=== PATIENT | male | born 1945 | race Caucasian/White ===

== ENCOUNTER 2020-05-13 19:09 | Emergency (ER) | payer MEDICARE, OTHER, SELFPAY ==
[2020-05-13 19:13] VITALS: BP 107/63; PULSE 84; RESP 18; TEMP 36.1; O2SAT 100
--- NOTE | 2020-05-13 19:32 | ED.GENADULT ---
HPI - General Adult General Chief complaint: Extremity Injury, Upper <Regina Hernandez PA-C - Last Filed: 05/13/20 21:31> Stated complaint: BLOOD CLOT IN ARM <Regina Hernandez PA-C - Last Filed: 05/13/20 21:31> Time Seen by Provider: 05/13/20 19:31 <Regina Hernandez PA-C - Last Filed: 05/13/20 21:31> Source: patient and family <Regina Hernandez PA-C - Last Filed: 05/13/20 21:31> Mode of arrival: ambulatory <VINCE Stock Last Filed: 05/13/20 21:31> Limitations: no limitations <Regina Hernandez PA-C - Last Filed: 05/13/20 21:31> History of Present Illness HPI narrative: This 75-year-old gentleman is here for evaluation of possible blood clot in his left upper arm. 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 He denies any trauma to his left arm states that he was just sitting in his chair watching TV on Wednesday when he suddenly had pain in his left arm and then not developed. He now has a knot and bruising at that site but there is no swelling of his left arm. And his arm is warm to touch. <Regina Hernandez PA-C - Last Filed: 05/13/20 21:31> Onset (ago): day(s) (24 hrs ago) <Regina Hernandez PA-C - Last Filed: 05/13/20 21:31> Severity scale (1-10): 1 <VINCE Stock Last Filed: 05/13/20 21:31> Pain Consistency: constant <VINCE Stock Last Filed: 05/13/20 21:31> Exacerbating factors: none <VINCE Stock Last Filed: 05/13/20 21:31> Associated symptoms: denies other symptoms <Regina Hernandez PA-C - Last Filed: 05/13/20 21:31> Treatments prior to arrival: none <Regina Hernandez PA-C - Last Filed: 05/13/20 21:31> Related Data Allergies/adverse reactions: Allergies Allergy/AdvReac Type Severity Reaction Status Date / Time colesevelam Allergy Dizziness Verified 05/13/20 19:10 simvastatin Allergy Dizziness Verified 05/13/20 19:10 cefdinir AdvReac Itching Verified 05/13/20 19:10 <Regina Hernandez PA-C - Last Filed: 05/13/20 21:31> Review of Systems Review of Systems: All systems reviewed & are unremarkable except as noted in HPI and below <Regina Hernandez PA-C - Last Filed: 05/13/20 21:31> [facility] Social History Social History: Social History (Updated 05/13/20 @ 21:07 by Regina Hernandez PA-C) Smoking status: Never smoker Alcohol intake: never Substance use: never Living arrangements: with family Occupation/Education: retired <Regina Hernandez PA-C - Last Filed: 05/13/20 21:31> Exam Const: General: no acute distress and alert <Regina Hernandez PA-C - Last Filed: 05/13/20 21:31> Orientation/consciousness: patient oriented x3 <Regina Hernandez PA-C - Last Filed: 05/13/20 21:31> HENMT: Head: normal to inspection <Regina Hernandez PA-C - Last Filed: 05/13/20 21:31> Eyes: Pupils: Equal, round and reactive pupils present <Regina Hernandez PA-C - Last Filed: 05/13/20 21:31> Neck: Other: No bruit <Regina Hernandez PA-C - Last Filed: 05/13/20 21:31> Resp: Effort & Inspection: normal respiratory effort <Regina Hernandez PA-C - Last Filed: 05/13/20 21:31> Auscultation: clear to auscultation bilaterally <Regina Hernandez PA-C - Last Filed: 05/13/20 21:31> Cardio: Rate: regular rate <Regina Hernandez PA-C - Last Filed: 05/13/20 21:31> Rhythm: regular rhythm <Regina Hernandez PA-C - Last Filed: 05/13/20 21:31> GI: GI Palp: Yes Soft to palpation <Regina Hernandez PA-C - Last Filed: 05/13/20 21:31> Skin: General skin exam: normal color <Regina Hernandez PA-C - Last Filed: 05/13/20 21:31> Other: With exception of bruise on right lower leg and bruise in left upper arm. Palpable hematoma in both <Regina Hernandez PA-C - Last Filed: 05/13/20 21:31> Neuro: General: moves all extremities <Regina Hernandez PA-C - Last Filed: 05/13/20 21:31> Extrem: General: normal to inspection and other (No swelling of left arm)
[2020-05-13 21:14] LABS: INR 3.1; Prothrombin Time 32.7 Seconds (11.1-14.7)
[2020-05-13 22:04] VITALS: BP 119/73; PULSE 71; RESP 18; O2SAT 98
== END 2020-05-13 22:06 | disposition home or self-care (01) ==
PROVIDERS: Physician Assistant; Emergency Provider Emergency Medicine; PCP Physician Assistant
DX: M79.602 Pain in left arm (principal); M79.81 Nontraumatic hematoma of soft tissue; Z79.01 Long term (current) use of anticoagulants; Z86.711 Personal history of pulmonary embolism
CPT/HCPCS: 36415; 85610; 99283

== ENCOUNTER 2020-05-14 07:32 | Outpatient (CLI) | payer MEDICARE, OTHER, SELFPAY ==
--- NOTE | ~2020-05-14 | US_ITS ---
EXAMINATION: US venous doppler UE LT DATE: 05/14/2020 08:12 INDICATION: Contusion left upper arm with pain TECHNIQUE: Malhotra scale images with and without compression and Doppler images of the left upper extrem ity veins were obtained. COMPARISON: None. FINDINGS: The left internal jugular vein, subclavian vein, axillary vein, brachial veins, basilic vein, cephali c vein, radial vein, and ulnar vein are patent.] IMPRESSION: 1. Patent left upper extremity veins. No evidence of deep venous thrombosis. Reviewed, dictated and finalized at location [facility]
== END 2020-05-14 07:33 | disposition home or self-care (01) ==
PROVIDERS: PCP Physician Assistant; Visit Provider Physician Assistant
DX: M79.622 Pain in left upper arm (principal); S40.022A Contusion of left upper arm, initial encounter; X58.XXXA Exposure to other specified factors, initial encounter
CPT/HCPCS: 93971

== ENCOUNTER 2024-03-22 23:05 | Emergency (ER) | payer MEDICARE, OTHER, SELFPAY ==
--- NOTE | ~2024-03-22 | XR_ITS ---
HISTORY: fall, pain COMPARISON: None TECHNIQUE: 3 views of the left wrist were performed FINDINGS: Significant soft tissue swelling overlying the left wrist. Findings on lateral view suggest carpal dislocation difficult to discern on oblique views. For which clinical correlation is needed. IMPRESSION: No acute fracture deformity is appreciated. Possible carpal dislocation, however difficult to discern on oblique views. Reviewed, dictated and finalized at location A.
--- NOTE | ~2024-03-22 | CT_ITS ---
CT head without contrast Indication: Trauma Technique: Serial scans were obtained through the brain without the administration of contrast. Dose reduction technique was used on this scan by utilizing automated exposure control and iterative recon struction technique. The dose-length product (DLP) was 605.33 mGy-cm. Findings: There is no evidence of intracranial hemorrhage, mass lesion, or acute infarct. The ventri cles and subarachnoid spaces are dilated, consistent with mild atrophy. Low attenuation regions are seen within the periventricular white matter bilaterally, likely representing changes from chronic mi crovascular ischemic disease. There is no evidence of edema, mass effect or midline shift. The visu alized paranasal sinuses and mastoid air cells are clear. Impression: No intracranial hemorrhage, mass, or acute infarct. Atrophy and chronic white matter changes, as above. Reviewed, dictated and finalized at location . Impression: No intracranial hemorrhage, mass, or acute infarct. Atrophy and chronic white matter changes, as above.
--- NOTE | ~2024-03-22 | XR_ITS ---
CHEST RADIOGRAPH, PA AND LATERAL CLINICAL HISTORY: NEAR SYNCOPE FALL DIZZY . COMPARISON: None available TECHNIQUE: PA and lateral views of the chest. FINDINGS Sternal wires and mediastinal clips are identified, the wires are midline and intact. The right upper lung is partially obscured due to pacemaker generator. Wires project over the right atrium and right ventricle. The remainder of the cardiomediastinal silhouette is otherwise unremarkable. Blunting of the left costophrenic sulcus suggesting a small left-sided pleural effusion. The remainde r of the lungs are clear. Visualized osseous structures and soft tissues are unremarkable. IMPRESSION: Small left-sided pleural effusion without focal infiltrate. Reviewed, dictated and finalized at location A.
[2024-03-22 23:08] VITALS: BP 163/81; PULSE 78; RESP 22; TEMP 36.6; O2SAT 98
--- NOTE | 2024-03-22 23:15 | ECG_ITS ---
Test Date: 2024-03-22 23:24:18 Measurements Intervals [place] Rate: 72 P: 269 CO: 154 QRS: -5 QRSD: 132 T: 51 QT: 419 QTc: 461 Interpretive Statements SINUS RHYTHM RIGHT BUNDLE BRANCH BLOCK [120+ ms QRS DURATION, UPRIGHT V1, 40+ ms S IN I/aVL/V4/V5/V6] INFERIOR MYOCARDIAL INFARCTION , PROBABLY OLD [40+ ms Q WAVE AND/OR ST/T ABNORMALITY IN II/aVF] ABNORMAL ECG No previous ECG available for comparison Electronically Signed On 03-23-2024 07:57:05 CDT by José Miguel Quesada M.D.
[2024-03-23 00:10] LABS: Basophils Percent Auto 0.7 % (0.2-1.2); Eosinophils Absolute Auto 0.4 K/mm3 (0-0.3); Eosinophils Percent Auto 6.4 % (0-4.4); Hematocrit 37.1 % (42.0-52.0); Hemoglobin 11.6 g/dL (14.0-18.0); Immature Granulocyte Absolute 0.03 K/mm3 (0.00-0.031); Immature Granulocyte Percent A 0.5 % (0-0.5); Lymphocytes Absolute Auto 1.51 K/mm3 (0.9-3.2); Lymphocytes Percent Auto 25.5 % (18.3-44.2); Mean Corpuscular HGB Conc 31.3 g/dl (32-36); Mean Corpuscular Hemoglobin 29.7 pg (26-34); Mean Corpuscular Volume 95.1 fl (80-100); Mean Platelet Volume 9.3 fl (7.4-10.4); Monocytes Absolute Auto 0.6 K/mm3 (0.1-0.6); Monocytes Percent Auto 9.5 % (2.6-8.5); Neutrophils Absolute Auto 3.4 K/mm3 (1.3-6.7); Neutrophils Percent Auto 57.4 % (45.5-73.1); Platelet Count Result 189 k/mm3 (150-375); Red Cell Distribution Width 15.4 % (11.5-14.5); White Blood Count 5.9 K/mm3 (4.5-10.0)
[2024-03-23 00:18] LABS: Anion Gap 9 mmol/L (4-12); Blood Urea Nitrogen 12 mg/dL (9-20); Carbon Dioxide 23 mmol/L (22-30); Chloride 108 mmol/L (98-107); Potassium 3.9 mmol/L (3.4-5.0); Sodium 140 mmol/L (137-145)
[2024-03-23 00:19] LABS: Alanine Aminotransferase 19 U/L (6-50); Albumin Level 4.2 g/dL (3.5-5.1); Alkaline Phosphatase 57 U/L (38-126); Aspartate Amino Transferase 27 U/L (17-59); Bilirubin,Total 0.4 mg/dL (0.2-1.3); Calcium 9.3 mg/dL (8.4-10.2); Estimated CRCL calculation 41 ml/min; Estimated Glomerular Filt Rate 45; Glucose 172 mg/dL (65-110)
--- NOTE | 2024-03-23 01:18 | ED.FALL ---
HPI - Fall General Chief Complaint: Fall Stated Complaint: fall Time Seen by Provider: 03/23/24 01:16 History of Present Illness HPI Narrative: 78-year-old male present to the emergency department for evaluation for multiple injuries after a fall. Patient states he had a mechanical fall resulting in multiple skin tears and pain in his hand. Related Data Home Medications Medication Instructions Recorded Confirmed acetaminophen 325 mg capsule 325 mg PO Q6H PRN 03/04/21 03/05/21 acetylcysteine 200 mg/mL (20 %) 1 ml inhalation ONCE 03/04/21 03/05/21 solution albuterol sulfate 0.63 mg/3 mL 0.63 mg inhalation Q4-6H PRN 03/04/21 03/05/21 solution for nebulization albuterol sulfate 90 mcg/actuation 1 puff inhalation Q4H PRN 03/04/21 03/05/21 aerosol inhaler (Proventil HFA) apixaban 5 mg tablet (Eliquis) 5 mg PO BID 03/04/21 03/05/21 aspirin 81 mg tablet,delayed 81 mg PO DAILY 03/04/21 03/05/21 release (Adult Low Dose Aspirin) atorvastatin 80 mg tablet (Lipitor) 80 mg PO DAILY 03/04/21 03/05/21 cholecalciferol (vitamin D3) 125 125 mcg PO DAILY 03/04/21 03/05/21 mcg (5,000 unit) capsule citalopram 20 mg tablet 20 mg PO DAILY 03/04/21 03/05/21 docusate sodium 100 mg capsule 100 mg PO DAILY 03/04/21 03/05/21 (Colace) ezetimibe 10 mg tablet (Zetia) 10 mg PO DAILY 03/04/21 03/05/21 fexofenadine 180 mg tablet 180 mg PO DAILY 03/04/21 03/05/21 (Allergy Relief (fexofenadine)) fluticasone 250 mcg-salmeterol 50 1 inh inhalation BID 03/04/21 03/05/21 mcg/dose blistr powdr for inhalation (Advair Diskus) fluticasone propionate 50 1 spray intranasal DAILY 03/04/21 03/05/21 mcg/actuation nasal spray,suspension (Allergy Relief (fluticasone)) guaifenesin 600 mg tablet, 600 mg PO Q12H PRN 03/04/21 03/05/21 extended release 12 hr (Mucinex) hydroxyzine HCl 50 mg tablet 50 mg PO QID PRN 03/04/21 03/05/21 ipratropium 0.5 mg-albuterol 3 mg 3 ml inhalation Q6H PRN 03/04/21 03/05/21 (2.5 mg base)/3 mL nebulization soln multivitamin (Multiple Vitamins 1 tablet PO DAILY 03/04/21 03/05/21 tablet) nitroglycerin 400 mcg/spray 1 spray translingual Q5M PRN 03/04/21 03/05/21 translingual (Nitrolingual) nortriptyline 10 mg capsule 10 mg PO DAILY 03/04/21 03/05/21 omega-3 acid ethyl esters 1 gram 1 cap PO DAILY 03/04/21 03/05/21 capsule (Lovaza) pantoprazole 40 mg tablet,delayed 40 mg PO QAM 03/04/21 03/05/21 release roflumilast 500 mcg tablet 500 mcg PO DAILY 03/04/21 03/05/21 (Daliresp) tiotropium bromide 18 mcg capsule 1 cap inhalation DAILY 03/04/21 03/05/21 with inhalation device (Spiriva with HandiHaler) topiramate 100 mg tablet (Topamax) 100 mg PO DAILY 03/04/21 03/05/21 torsemide 10 mg tablet 10 mg PO QAM 03/04/21 03/05/21 Allergies Allergy/AdvReac Type Severity Reaction Status Date / Time colesevelam Allergy Dizziness Verified 03/22/24 23:14 simvastatin Allergy Dizziness Verified 03/22/24 23:14 cefdinir AdvReac Itching Verified 03/22/24 23:14 Review of Systems Review of Systems: All systems reviewed & are unremarkable except as noted in HPI and below PMFSH Past Medical History Medical History Chronic sinus infection (~1988) sinus infection surgery Hemorrhoid (~2017) August- Hemorrhoid surgery. 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 History of chest pain (~2010) December- was checked into the hospital for chest pains. Treatments to get coumadin levels down to have angiogram. Was given frozen blood platelets. Angiogram revealed blood is now getting to all parts of the heart via new vessels made around closed ones; one closed, by passed vein graft with a stent, had reopened, and was flowing. Two vein grafts were 100% occluded. History of coronary angiogram (~1997) shortness of breath-was told he needed open heart surgery-August History of coronary angiogram (~1999) jose juan
[2024-03-23 01:45] VITALS: BP 148/94; PULSE 85; RESP 16; O2SAT 100
[2024-03-23 02:30] VITALS: BP 116/80; PULSE 82; RESP 16; O2SAT 100
[2024-03-23 03:35] VITALS: BP 134/88; PULSE 77; RESP 14; O2SAT 96
[2024-03-23 04:08] VITALS: BP 141/77; PULSE 78; RESP 14; O2SAT 100
[2024-03-23] MEDS: SULFAMETHOXAZOLE/TRIMETHOPRIM 800/160 MG DS TABLET 1 TAB PO (04:26)
[2024-03-23] MEDS: HYDROcodone/acetaminophen (*CRX) 5-325 MG TABLET 1 TAB PO (04:27)
== END 2024-03-23 04:15 | disposition home or self-care (01) ==
PROVIDERS: Emergency Provider Emergency Medicine; PCP Physician Assistant
DX: S41.112A Laceration without foreign body of left upper arm, initial encounter (principal); S41.111A Laceration without foreign body of right upper arm, initial encounter; S69.90XA Unspecified injury of unspecified wrist, hand and finger(s), initial encounter; F17.210 Nicotine dependence, cigarettes, uncomplicated; Z87.442 Personal history of urinary calculi; Z95.5 Presence of coronary angioplasty implant and graft; Z95.1 Presence of aortocoronary bypass graft; Z90.49 Acquired absence of other specified parts of digestive tract; R93.6 Abnormal findings on diagnostic imaging of limbs; I45.10 Unspecified right bundle-branch block; W19.XXXA Unspecified fall, initial encounter
CPT/HCPCS: 29125; 36415; 70450; 71046; 73110; 73564; 80053; 85025; 93005; 99284; A9270

== ENCOUNTER 2024-04-04 16:45 | Outpatient (CLI) | payer MEDICARE, OTHER, SELFPAY ==
--- NOTE | ~2024-04-04 | XR_ITS ---
XR wrist LT min 3V Ordering provider: Jeanette Bryan PA-C History: . S69.90XA - Unspecified injury of unspecified wrist, hand ... . Comparison: None. FINDINGS: BONES: Lucency is also noted in the scaphoid bone which may be a summation shadow Follow-up in 10 day s is advised. 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 SOFT TISSUES: Postoperative changes laterally into the subcutaneous tissues. IMPRESSION: Possible fracture in the scaphoid bone. Follow-up imaging is advised. Reviewed, dictated and finalized at location A.
== END 2024-04-04 16:46 | disposition home or self-care (01) ==
PROVIDERS: PCP Physician Assistant; Visit Provider Physician Assistant Surgical
DX: S69.90XA Unspecified injury of unspecified wrist, hand and finger(s), initial encounter (principal); T14.8XXA Other injury of unspecified body region, initial encounter; X58.XXXA Exposure to other specified factors, initial encounter; R93.6 Abnormal findings on diagnostic imaging of limbs
CPT/HCPCS: 73110

== ENCOUNTER 2024-04-07 15:42 | Outpatient (CLI) | payer MEDICARE, OTHER, SELFPAY ==
--- NOTE | ~2024-04-07 | CT_ITS ---
Procedure: CT wrist LT wo con Ordering provider: Jeanette Bryan PA-C History: . S69.90XA - Unspecified injury of unspecified wrist, hand ... . Comparison: None. Technique: Thin slice axial CT of the No IV contrast was given. Sagittal and coronal reformatted imag es were also obtained and reviewed. Radiation reduction technique utilized. The dose-length product w as 552.31 mGy-cm. Findings: BONES: Undisplaced. The distal radius is seen posteriorly. Small bony fragment seen near to the tip o f the radius laterally which also may be a chip fracture. Fracture in the trapezium is also seen medi ally and anteriorly with no displacement. Chip Fracture in the triquetral bone is seen posteriorly. C ystic changes are seen in the scaphoid and lunate bone which may be degenerative. No definite fractur es seen. JOINT SPACES: Normal SOFT TISSUES: Minimal fat stranding in subcutaneous tissues anteriorly. IMPRESSION: Undisplaced fracture in the distal radius near to the ulna. Undisplaced fracture of the triquetral bone posteriorly. Undisplaced fracture of the trapezium bone. Reviewed, dictated and finalized at location A.
== END 2024-04-07 15:43 | disposition home or self-care (01) ==
LOC: ANHIMG 15:43
PROVIDERS: PCP Physician Assistant; Visit Provider Physician Assistant Surgical
DX: S52.592A Other fractures of lower end of left radius, initial encounter for closed fracture (principal); S62.115A Nondisplaced fracture of triquetrum [cuneiform] bone, left wrist, initial encounter for closed fracture; X58.XXXA Exposure to other specified factors, initial encounter
CPT/HCPCS: 73200

== ENCOUNTER 2024-05-02 12:49 | Outpatient (CLI) | payer MEDICARE, OTHER, SELFPAY ==
--- NOTE | ~2024-05-02 | XR_ITS ---
EXAMINATION: XR wrist LT min 3V DATE: 05/02/2024 13:18 INDICATION: Fracture of unspecified carpal bone. TECHNIQUE: 4 views of left wrist were obtained. COMPARISON: Left wrist radiographs 04/04/2024, CT 04/07/2024 FINDINGS: Alignment is normal. There is a nondisplaced fracture of dorsal aspect of distal radius. Th ere is a nondisplaced avulsion fracture of the dorsal pole of triquetrum. The fracture of trapezium s een by CT is not well visualized. There is mild osteoarthritis of triscaphe joint and first carpometa carpal joint. There are surgical clips in the radial aspect of the forearm. IMPRESSION: 1. Nondisplaced fracture of dorsal aspect of distal radius again seen. 2. Nondisplaced avulsion fracture of dorsal pole of triquetrum again seen. 3. The trapezium fracture seen by CT is not visible. Reviewed, dictated and finalized at location A. [employer]
== END 2024-05-02 12:50 | disposition home or self-care (01) ==
PROVIDERS: PCP Physician Assistant; Visit Provider Physician Assistant Surgical
DX: S52.592D Other fractures of lower end of left radius, subsequent encounter for closed fracture with routine healing (principal); S62.115D Nondisplaced fracture of triquetrum [cuneiform] bone, left wrist, subsequent encounter for fracture with routine healing; X58.XXXD Exposure to other specified factors, subsequent encounter
CPT/HCPCS: 73110